=== PATIENT | male | born 1945 | race Caucasian/White ===

== ENCOUNTER → 2018-04-20 | Outpatient (CLI) | payer OTHER ==
--- NOTE | 2018-04-20 17:25 | RAD ---
Right lower extremity venous duplex Doppler ultrasound HISTORY: Right leg swelling. TECHNIQUE: Grayscale and duplex Doppler sonography were utilized. FINDINGS: Occlusive DVT of the right superficial femoral vein, popliteal vein and posterior tibial vein. No DVT evident of the right profunda femoral vein or common femoral vein with patent blood flow. IMPRESSION: Occlusive DVT of the right superficial femoral vein, popliteal vein and posterior tibial vein in the calf. Critical results were called to Dr. Manrique at 5:20 PM April 20, 2018. Electronically signed by: Hammad Ruiz MD (04/20/2018 5:22 PM) [id number]
== END | disposition home or self-care (01) ==
LOC: US 16:43
PROVIDERS: ATTEND Internal Medicine Cardiovascular Disease
DX: I82.411 Acute embolism and thrombosis of right femoral vein (principal)
CPT/HCPCS: 93971